=== PATIENT | male | born 1970 | race Caucasian/White ===

== ENCOUNTER 2021-03-31 13:51 | Outpatient (CLI) | payer MEDICAID, SELFPAY ==
--- NOTE | 2021-03-31 13:30 | DI.RAD_ITS ---
Exam(s) XR SHOULDER RT COMPLETE 2+V EXAM: XR SHOULDER RT COMPLETE 2+V CLINICAL HISTORY: shoulder pain, frozen shoulder, adhesive capsulitis, M75.00 TECHNIQUE: COMPARISON: No exams were available for comparison FINDINGS: Six views were obtained. Cartilaginous joint space of the glenohumeral joint appears fairly well chris ntained. The AC joint is unremarkable in appearance. No focal bony abnormality seen. There is tiny tae of calcification projected over the greater tuberosity of the humerus probably associated with supraspinatus tendon insertion and this may represent a calcific peritendinitis. No other significa nt soft tissue abnormality seen. IMPRESSION: RADIATION DOSE DELIVERED: Total DLP
== END 2021-03-31 14:11 ==
PROVIDERS: Visit Provider Nurse Practitioner
DX: M25.511 Pain in right shoulder (principal); M75.01 Adhesive capsulitis of right shoulder
CPT/HCPCS: 73030

== ENCOUNTER 2021-06-10 03:19 | Outpatient (CLI) | payer MEDICAID, SELFPAY ==
[2021-06-10 12:54] LABS: Hemoglobin A1C 5.5 % (<5.7)
[2021-06-10 13:04] LABS: ALT 28 U/L (16-63); AST 24 U/L (15-37); Albumin 3.7 g/dL (3.4-5.0); Alkaline Phosphatase 83 U/L (46-116); Anion Gap 5.9 mmol/L (3-11); BUN 16 mg/dL (7-18); Bilirubin, Total 0.3 mg/dL (0.2-1.0); CO2 32.1 mmol/L (21.0-32.0); Calcium 8.8 mg/dL (8.5-10.1); Calculated LDL 93 mg/dL (<100); Chloride 106 mmol/L (98-107); Cholesterol 157 mg/dL (<200); Glucose 83 mg/dL (74-106); HDL Cholesterol 52 mg/dL (40-60); Potassium 4.7 mmol/L (3.5-5.1); Sodium 144 mmol/L (136-145); TSH 1.51 uIU/mL (0.36-3.74); Total Protein 7.2 g/dL (6.4-8.2); Triglyceride 63 mg/dL (<150)
[2021-06-10 22:12] LABS: PSA, Screening 0.7 ng/mL (0.0-2.5)
== END 2021-06-10 03:20 | disposition home or self-care (01) ==
LOC: LOS 03:20
PROVIDERS: PCP Nurse Practitioner Family; Visit Provider Nurse Practitioner Family
DX: I10 Essential (primary) hypertension (principal); Z13.220 Encounter for screening for lipoid disorders; Z13.29 Encounter for screening for other suspected endocrine disorder; Z12.5 Encounter for screening for malignant neoplasm of prostate; Z00.00 Encounter for general adult medical examination without abnormal findings; Z13.1 Encounter for screening for diabetes mellitus
CPT/HCPCS: 36415; 80053; 80061; 84153; 83036; 84443

== ENCOUNTER 2022-09-16 03:30 | Outpatient (CLI) | payer OTHER, SELFPAY ==
[2022-09-16 12:56] LABS: Estimated GFR 91.12 (mL/min/1.73m2)
== END 2022-09-16 03:31 | disposition home or self-care (01) ==
LOC: LOS 03:30
PROVIDERS: PCP Nurse Practitioner Family; Visit Provider Nurse Practitioner Family
DX: I10 Essential (primary) hypertension (principal)
CPT/HCPCS: 36415; 82565; 84132

== ENCOUNTER 2022-12-01 17:30 | Day surgery (SDC) | payer OTHER, SELFPAY ==
[2022-12-01] VITALS (43 sets, daily range): BP systolic 132–175; BP diastolic 78–101; PULSE 67–86; RESP 11–24; TEMP 36.3–37.2; TEMPC 37.2; O2SAT 95–100; BMI 28.0
--- NOTE | 2022-12-01 17:45 | RT.EKG_ITS ---
APPROVED REPORT Exam: Resting ECG Reason for Exam: Midepigastric pain Patient Location: E HR:68 bpm ECG Measurements Heart Rate 68 AXIS SD 181 P 65 QRSd 100 QRS 7 QT 402 T 34 QTc 428 Conclusion Sinus rhythm...normal P axis, V-rate 60- 99 Probable left atrial enlargement...P >50mS, <-0.10mV V1
--- NOTE | 2022-12-01 17:53 | ED.GENADUL_ITS ---
Discharge Plan Discharge Details Chief Complaint: ThroatFB Attending Provider: Vicente Dunlap Primary Care Provider: Juancarlos Kwan ED Provider: Flora Varma Medical Decision Making 52-year-old male presents to the ER accompanied by his with a chief complaint of foreign body sensation since last night. He reports that he has had intermittent hiccups throughout the day. This began after eating some chicken last night. He has been unable to eat or drink anything since then. He has a clear voice, denies any radiation of the chest pain or shortness of breath or cough. Denies any diarrhea or any other associated symptoms. Does complain of some midsternal tightness. He does report a history of this years ago and he did have a barium swallow at that time. Past medical history includes hyperlipidemia hypertension, GERD, seborrheic dermatitis and removal of malignant melanoma of skin In 1996. EKG was reviewed by Dr. Blayne Hoffman ER attending, Work-up ordered including CBC CMP, troponin, EKG, effervescent granules p.o. ordered to attempt at removal of foreign body. Will consider imaging if unsuccessful. Effervescent's x2 p.o. attempt unsuccessful per RN report. I did reevaluate patient he states that he still feels foreign body sensation in his upper esophagus and lower esophagus. He is speaking in full sentences, O2 sat is 98% on room air. Labs are pending at this time. 2 mg of diazepam ordered IV. CBC shows no leukocytosis, CMP largely within normal limits, initial troponin less than 50, 185: Surgery paged for consultation. 1941: Surgery re-paged. 1950: Spoke with Dr. Dunlap who is occupational health and safety adviser for general surgery regarding patient case and details. We are unable to do a barium swallow x-ray at this time due to no radiologist in house. He will come in and evaluate the patient for possible urgent endoscopy. COVID swab added on. 2034: Dr. Dunlap here at bedside for patient evaluation. Patient is COVID- positive chest x-ray ordered. Anesthesia here at bedside for evaluation. Plan is to have patient go to the OR for upper endoscopy for foreign body removal. Patient remained alert and oriented hemodynamically stable throughout the remainder of the stay. This text was generated using [employer] system, please disregard any oddities of phrase or misspellings. 2148: Patient parents reported to OR by senior staff accountant. Medical Records Medical records reviewed: Yes I reviewed the patient's medical records. Imaging Data Radiologic Study: Imaging: X-Ray Radiologist's impression: Chest x-ray v[facility] report: Imaging protocol: Radiologic exam of the chest. Views: 1 view. COMPARISON: CR XR SHOULDER RT COMPLETE 2+V 03/31/2021 2:03 PM FINDINGS: Lungs: Unremarkable. No consolidation. Pleural spaces: Unremarkable. No pleural effusion. No pneumothorax. Heart/Mediastinum: Mild aortic tortuosity. No cardiomegaly. Bones/joints: Unremarkable. IMPRESSION: No acute findings. Thank you for allowing us to participate in the care of your patient. Dictated and Authenticated by: Darrell Fowler MD Lab Data Lab results reviewed: Yes I reviewed the patient's lab results. Labs: Laboratory Tests Range/Units 12/01/22 12/01/22 18:45 18:45 WBC (4.4-10.8) 10^3/uL 6.77 RBC (4.36-5.78) 10^6/uL 5.53 Hgb (13.5-17.5) g/dL 16.2 Hct (40.0-50.0) % 49.9 MCV (80-95) fL 90 MCH (27.0-33.0) pg 29.3 MCHC (32.0-36.0) % 32.5 RDW (11.8-14.1) % 13.1 Plt Count (130-400) 10^3/uL 284 MPV (8.0-11.0) fL 9.6 Immature Gran % 0.1 Neutrophils % 68.9 Lymphocytes % 21.0 Monocytes % 7.5 Eosinophils % 2.2 Basophils % 0.3 Nucleated RBC % (0.0-0.3) % 0.0 Absolute Neutrophils (1.2-6.7) 10^3/uL 4.66 Absolute Lymphocytes (1.2-3.4) 10^3/uL 1.42 Absolute Monocytes (0.1-0.8) 10^3/uL 0.51 Absolute Eosinophils (0.0-0.7) 10^3/uL 0.15 Absolute Basophils (0.0-0.2) 10^3/uL 0.02 Sodium (136-145) mmol/L 142 Potassium (3.5-5.1) mmol/L 4.4 Chloride (98-107) mmol/L 105 Carbon Dioxide (21.0-32.0) mmol/L 30.9 Anion Gap (3-11) mmol/L 6.1 BUN (7-18) mg/dL 18 Creatinine (0.70-1.30) mg/dL 1.0 Est GFR (CKD-EPI 2020) (mL/min/1.73m2) 91.12 Glucose (74-106) mg/dL 81 Calcium (8.5-10.1) mg/dL 9.3 Magnesium (1.8-2.4) mg/dL 2.2 Total Bilirubin (0.2-1.0) mg/dL 0.7 AST (15-37) U/L 38 H ALT (16-63) U/L 37 Alkaline Phosphatase (46-116) U/L 68 Troponin I (<or=60) ng/L < 50 Total Protein (6.4-8.2) g/dL 8.2 Albumin (3.4-5.0) g/dL 4.2 HPI General Mode of arrival: ambulatory . Date/Time Provider Initiated Documentation: 12/01/22 17:36 . Limitations to Documentation: no limitations . Information obtained by: patient, family and old records reviewed . HPI Narra tive: 52-year-old male presents to the ER accompanied by his with a chief complaint of foreign body sensation since last night. He reports that he has had intermittent hiccups throughout the day. This began after eating some chicken last night. He has been unable to eat or drink anything since then. He has a clear voice, denies any radiation of the chest pain or shortness of breath or cough. Denies any diarrhea or any other associated symptoms. Does complain of some midsternal tightness. He does report a history of this years ago and he did have a barium swallow at that time. Past medical history includes hyperlipidemia hypertension, GERD, seborrheic dermatitis and removal of malignant melanoma of skin In 1996. Related Data Home Medications Medication Instructions Recorded Confirmed lisinopril 20 mg tablet 20 mg PO DAILY #90 tabs 06/24/22 12/01/22 omeprazole 20 mg capsule,delayed 20 mg PO DAILY #30 caps 12/01/22 12/01/22 release Previous Rx's Medication Instructions Recorded lisinopril 20 mg tablet 20 mg PO DAILY #90 tabs 06/24/22 omeprazole 20 mg capsule,delayed 20 mg PO DAILY #30 caps 12/01/22 release Allergies Allergy/AdvReac Type Severity Reaction Status Date / Time venom-honey bee Allergy Intermediate sore area Verified 12/01/22 17:52 General Stated Complaint: ThroatFB LEIA: 2 Review of Systems All systems reviewed & are unremarkable except as noted in HPI and below ENT Ears, Nose, Mouth, and Throat: Reports dysphagia Cardiovascular Cardiovascular: Reports chest pain at rest (Describes as esophageal tightening), Denies syncope and Denies dyspnea Respiratory Respiratory: Denies dyspnea Gastrointestinal Gastrointestinal: Denies abdominal pain, Reports dysphagia and Reports other (Hiccups) Neurologic Neurologic: Denies syncope PFS All Active Problems (Updated 12/01/22 @ 20:57 by Vicente Dunlap MD) COVID-19 (Acute) Food bolus obstruction of intestine (Acute) GERD (gastroesophageal reflux disease) (Chronic) Seborrheic dermatitis (Acute 12/14/16) Hyperlipidemia (Acute) Hypertension (Chronic) Medical History Concussion Hemorrhoids Malignant melanoma of skin Surgical History Colonoscopy - MAC (07/29/17) Skin Cancer Removal (~1996) Family History Mother Essential hypertension Personal history of malignant neoplasm SKIN Father Diabetes Personal history of malignant neoplasm PROSTATE Sister No problems noted. Brother No problems noted. Grandfather Heart disease Myocardial infarction Grandfather Personal history of malignant neoplasm Grandmother Stroke Grandmother Heart disease BY PASS Son No problems noted. Son No problems noted. Social History Smoking/Tobacco Use Status: Never Smoking risk assessment performed?: Yes Alcohol Intake: former Drug use: Never Substance use type: does not use Caregiver/Support person: No Household members: spouse Housing: house Communication Needs: None Do you need help understanding health information?: Never Pets and animals: Yes Pets and animals: cat(s) Sexually active: Yes Do you think of yourself as: straight/heterosexual Current gender identity: male What is your relationship status?: How often do you talk on the phone with friends or family?: three or more times per week How often do you get together with friends or relatives?: twice per week How often do you attend holiness or caodaism services?: 4 or more times per year Do you belong to any clubs or organized social groups?: yes Panel score (0-1 are the most socially isolated patients): 4 What type of physical activity do you participate in: regular exercise and other Details: Hiking Duration: > 90 minutes/day Frequency: daily Libra/Jain: Presybeterian Special libra needs: No Seatbelt use: always Drive intox or ride 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 Appears stated age. Normal body habitus. Head: Normocephalic, no trauma. Eyes: Pupils PERRL, Red reflex noted, EOM's intact. Eyelids symmetrical without lesions, discharge, or swelling. ENT: External ear normal to inspection, no mastoid TTP, swelling, or erythema, Nasal turbinates WNL, no nasal discharge. Normal dentition, Posterior pharynx WNL, no exudate. Chest: RRR, Normal S1, S2, distal pulses intact. Complaining of midsternal and upper esophageal tightening associated with hiccups difficulty swallowing and handling secretions. Resp: Lungs clear to auscultation bilaterally, no wheezes, rales, or rhonchi. Abdomen: Soft, non-distended, Normoactive bowel sounds all 4 quads. Musculoskeletal: Normal gait, 5/5 strength to all four extremities. Skin: No suspicious rashes or lesions. Capillary refill less than 2 sec. Neurologic: Cranial nerves II-XII intact. Alert and oriented x 3. Motor: No deficits noted. Sensory: Intact bilaterally all 4 extremities. Hematologic/Lymphatic: No ecchymosis, no lymphadenopathy. Course Vital Signs Vital signs: Vital Signs Temperature 37.0 C 12/01/22 17:43 Pulse 71 12/01/22 17:43 Respiratory Rate 18 12/01/22 17:43 Blood Pressure 175/98 H 12/01/22 17:43 Pulse Oximetry 98 12/01/22 17:43 Temperature 37.0 C 12/01/22 17:43 Temperature Source Skin 12/01/22 17:43 Pulse 71 12/01/22 17:43 Respiratory Rate 18 12/01/22 17:43 Blood Pressure 175/98 H 12/01/22 17:43 Blood Pressure Position Sitting 12/01/22 17:43 Pulse Oximetry 98 12/01/22 17:43 Oxygen Delivery Method Room Air 12/01/22 17:43 Oxygen Flow Rate 0 12/01/22 17:43 Pain Level 0 12/01/22 17:43
[2022-12-01] MEDS: Potassium Bicarbonate/Cit AC 25 MEQ TABLET.EFF PO ×2 (18:14→18:53)
[2022-12-01 18:55] LABS: Abs Immature Grans 0.01 10^3/uL (0.0-0.06); Absolute Basophil Count 0.02 10^3/uL (0.0-0.2); Absolute Eosinophil Count 0.15 10^3/uL (0.0-0.7); Absolute Lymphocyte Count 1.42 10^3/uL (1.2-3.4); Absolute Monocyte Count 0.51 10^3/uL (0.1-0.8); Absolute Neutrophil Count 4.66 10^3/uL (1.2-6.7); Basophils % 0.3; Eosinophils % 2.2; HCT 49.9 % (40.0-50.0); HGB 16.2 g/dL (13.5-17.5); Immature Grans % 0.1; MCH 29.3 pg (27.0-33.0); MCHC 32.5 % (32.0-36.0); MCV 90 fL (80-95); MPV 9.6 fL (8.0-11.0); Monocytes % 7.5; Neutrophils % 68.9; Platelet Count 284 10^3/uL (130-400); RBC 5.53 10^6/uL (4.36-5.78); RDW 13.1 % (11.8-14.1); RDW-SD 43.4 fL; WBC 6.77 10^3/uL (4.4-10.8)
[2022-12-01] MEDS: Normal Saline 250 ML IV (19:00)
[2022-12-01] MEDS: diazePAM 10 MG/2 ML SYR 2 MG IVP (19:01)
[2022-12-01 19:14] LABS: ALT 37 U/L (16-63); AST 38 U/L (15-37); Albumin 4.2 g/dL (3.4-5.0); Alkaline Phosphatase 68 U/L (46-116); Anion Gap 6.1 mmol/L (3-11); BUN 18 mg/dL (7-18); Bilirubin, Total 0.7 mg/dL (0.2-1.0); CO2 30.9 mmol/L (21.0-32.0); Calcium 9.3 mg/dL (8.5-10.1); Chloride 105 mmol/L (98-107); Estimated GFR 91.12 (mL/min/1.73m2); Glucose 81 mg/dL (74-106); Magnesium 2.2 mg/dL (1.8-2.4); Potassium 4.4 mmol/L (3.5-5.1); Sodium 142 mmol/L (136-145); Total Protein 8.2 g/dL (6.4-8.2); Troponin I < 50 ng/L (<or=60)
[2022-12-01 20:02] LABS: Source Nasal/Nares
--- NOTE | 2022-12-01 20:15 | DI.RAD_ITS ---
Exam(s) XR PORTABLE CHEST AP EXAM: XR PORTABLE CHEST AP CLINICAL HISTORY: Chest pain Pre-op, Foreign body sensation TECHNIQUE: 2D digital imaging was performed. COMPARISON: No exams were available for comparison FINDINGS: LUNGS: Clear. No pleural abnormality seen. HEART: Normal size. AORTA: Normal diameter. BONES: Unremarkable for age. Soft tissues: Unremarkable. IMPRESSION: No acute findings. DATA REPOSITORY: RADIATION DOSE DELIVERED:
[2022-12-01 20:39] LABS: COVID-19 PCR POSITIVE (Negative)
--- NOTE | 2022-12-01 20:45 | W.PM.HP.N ---
Date of service: 12/01/22 Time of Service: 20:45 Assessment and Plan Assessment and plan (1) Food bolus obstruction of intestine: Status: Acute Assessment and plan: EGD tonight. We discussed the risks and benefits of the procedure and he provided informed consent. (2) COVID-19: Status: Acute Assessment and plan: Asymptomatic incidental finding Basic supportive therapy without specific intervention History of Present Illness History of Present Illness Chief Complaint: dysphagia with foreign body sensation Narrative: Josh is a 52 year old male who was eating dinner last night and got the sensation of food getting caught in the middle of his chest. He described it as uncomfortable and a fullness. He tried to drink some water and eat ice cream but this induced hiccups and vomiting without any relief of the food bolus sensation. Hiccups persisted through the night but he was able to sleep. He felt a bit more discomfort this morning and he has not been able to tolerate anything by mouth prior to coming to the ED this afternoon. He says that he had one previous episode of this many years ago. He thinks he had a barium swallow and to his knowledge,nothing was identified. Review of Systems Constitutional Constitutional: Denies body ache(s), Denies fatigue, Denies fever(s) and Denies weakness Eyes Eyes: Reports system reviewed and no additional complaints, except as documented ENT Ears, Nose, Mouth, and Throat: Reports system reviewed and no additional complaints, except as documented, Reports dysphagia and Reports odynophagia Cardiovascular Cardiovascular: Denies chest pain and Denies dyspnea Respiratory Respiratory: Denies chest congestion, Denies cough and Denies dyspnea Gastrointestinal Gastrointestinal: Denies abdominal pain, Denies bloating, Denies change in stool character, Denies coffee ground emesis, Reports dysphagia, Reports odynophagia and Reports vomiting Genitourinary Genitourinary: Reports system reviewed and no additional complaints, except as documented Musculoskeletal Musculoskeletal: Denies back pain and Denies myalgias Neurologic Neurologic: Reports system reviewed and no additional complaints, except as documented and Denies weakness Psychiatric Psychiatric: Reports system reviewed and no additional complaints, except as documented Endocrine Endocrine: Denies fatigue Hematologic/Lymphatic Hematologic/Lymphatic: Denies easy bleeding and Denies easy bruising PFSH All Active Problems (Updated 12/01/22 @ 20:57 by Vicente Dunlap MD) COVID-19 (Acute) Food bolus obstruction of intestine (Acute) GERD (gastroesophageal reflux disease) (Chronic) Seborrheic dermatitis (Acute 12/14/16) Hyperlipidemia (Acute) Hypertension (Chronic) Medical History Concussion Hemorrhoids Malignant melanoma of skin Surgical History Colonoscopy - MAC (07/29/17) Skin Cancer Removal (~1996) Family History Mother Essential hypertension Personal history of malignant neoplasm SKIN Father Diabetes Personal history of malignant neoplasm PROSTATE Sister No problems noted. Brother No problems noted. Grandfather Heart disease Myocardial infarction Grandfather Personal history of malignant neoplasm Grandmother Stroke Grandmother Heart disease BY PASS Son No problems noted. Son No problems noted. Social History Smoking/Tobacco Use Status: Never Smoking risk assessment performed?: Yes Alcohol Intake: former Drug use: Never Substance use type: does not use Caregiver/Support person: No Household members: spouse Housing: house Communication Needs: None Do you need help understanding health information?: Never Pets and animals: Yes Pets and animals: cat(s) Sexually active: Yes Do you think of yourself as: straight/heterosexual Current gender identity: male What is your relationship status?: How often do you talk on the phone with friends or family?: three or more times per week How often do you get together with friends or relatives?: twice per week How often do you attend hinduism or zoroastrianism services?: 4 or more times per year Do you belong to any clubs or organized social groups?: yes Panel score (0-1 are the most socially isolated patients): 4 What type of physical activity do you participate in: regular exercise and other Details: Hiking Duration: > 90 minutes/day Frequency: daily Libra/Sabianist: Protestant Special libra needs: No Seatbelt use: always Drive intox or ride w/intox mechanic driver: No Meds Allergies and Home Medications Allergies Allergy/AdvReac Type Severity Reaction Status Date / Time venom-honey bee Allergy Intermediate sore area Verified 12/01/22 17:52 Home Medications Medication Instructions Recorded Confirmed Type lisinopril 20 mg tablet 20 mg PO DAILY #90 tabs 06/24/22 12/01/22 Rx omeprazole 20 mg capsule,delayed 20 mg PO DAILY #30 caps 12/01/22 12/01/22 Rx release Exam Const General: cooperative, healthy appearing and comfortable Orientation: awake and oriented x3 HENMT Head: normal to inspection Mouth: oral mucosae normal Teeth and gingiva: dentition normal Eyes General: appearance normal, both eyes and all related structures Conjunctivae: conjunctivae normal Sclera: sclerae normal Neck Neck: normal visual inspection, full ROM and no lymphadenopathy Thyroid: thyroid normal Lymphatic: no lymphadenopathy noted Chest Chest: normal inspection of the chest and no crepitus Resp Effort & Inspection: normal respiratory effort and able to speak in complete sentences Auscultation: clear to auscultation bilaterally Cardio Jugular venous pressure: no JVD Rate: regular rate Rhythm: regular rhythm Heart Sounds: S1 normal and S2 normal GI Inspection: non-distended Palpation: soft, no guarding, no hernias and nontender Auscultation: normal bowel sounds Skin General skin exam: normal turgor Neuro General: patient alert, patient awake and patient oriented x3 Cognition: normal cognition Extrem Right lower extremity: no edema Left lower extremity: no edema Results Labs Result diagrams: 12/01/22 18:45 12/01/22 18:45 Labs: Laboratory Results - last 24 hr 12/01/22 12/01/22 12/01/22 18:45 18:45 19:56 WBC 6.77 RBC 5.53 Hgb 16.2 Hct 49.9 MCV 90 MCH 29.3 MCHC 32.5 RDW 13.1 Plt Count 284 MPV 9.6 Immature Gran % 0.1 Neutrophils % 68.9 Lymphocytes % 21.0 Monocytes % 7.5 Eosinophils % 2.2 Basophils % 0.3 Nucleated RBC % 0.0 Absolute Neutrophils 4.66 Absolute Lymphocytes 1.42 Absolute Monocytes 0.51 Absolute Eosinophils 0.15 Absolute Basophils 0.02 Sodium 142 Potassium 4.4 Chloride 105 Carbon Dioxide 30.9 Anion Gap 6.1 BUN 18 Creatinine 1.0 Est GFR (CKD-EPI 2020) 91.12 Glucose 81 Calcium 9.3 Magnesium 2.2 Total Bilirubin 0.7 AST 38 H ALT 37 Alkaline Phosphatase 68 Troponin I < 50 Total Protein 8.2 Albumin 4.2 COVID-19 Source Nasal/Nares SARS-CoV-2 (PCR) POSITIVE A* Last Vital Signs Temp 98.6 F 12/01/22 17:43 Pulse 71 12/01/22 17:43 Resp 18 12/01/22 17:43 BP 175/98 H 12/01/22 17:43 Pulse Ox 98 12/01/22 17:43 Time Spent Time spent with Patient: 40-54 minutes Time was spent: preparing to see the patient(eg.review tests), obtaining and/or reviewing separately otained hiistory, ordering medications,tests, procedures, referring, communicating with other health medicare sales representative, indepentently interpreting results and counseling the patient
--- NOTE | 2022-12-01 20:52 | DI.VRAD_ITS ---
PROCEDURE INFORMATION: Exam: XR Chest Exam date and time: 12/01/2022 8:16 PM Age: 52 years old Clinical indication: Screening exam; Pre-operative exam; Other: Endoscopy; Patient HX: Chest pain pre-op, foreign body sensation TECHNIQUE: Imaging protocol: Radiologic exam of the chest. Views: 1 view. COMPARISON: CR XR SHOULDER RT COMPLETE 2+V 03/31/2021 2:03 PM FINDINGS: Lungs: Unremarkable. No consolidation. Pleural spaces: Unremarkable. No pleural effusion. No pneumothorax. Heart/Mediastinum: Mild aortic tortuosity. No cardiomegaly. Bones/joints: Unremarkable. IMPRESSION: No acute findings. Dictated and Authenticated by: Darrell Fowler MD. Ordering:JEAN Hines MD
--- NOTE | 2022-12-01 21:21 | ANES.PREOP_ITS ---
General Info Date of Service Date Performed: 12/01/22 Height: 5 ft 9 in Weight: 86.183 kg Body Mass Index (BMI): 28.0 Surgical Procedure: Operation Date: 12/01/22 21:40 Proposed Procedure Side Surgeon p Gastroscopy/Removal Foreign Body Vicente Dunlap MD Meds Allergies and Home Medications Allergies Allergy/AdvReac Type Severity Reaction Status Date / Time venom-honey bee Allergy Intermediate sore area Verified 12/01/22 17:52 Home Medication Medication Instructions Recorded lisinopril 20 mg tablet 20 mg PO DAILY #90 tabs 06/24/22 omeprazole 20 mg capsule,delayed 20 mg PO DAILY #30 caps 12/01/22 release Current Visit Medications: Current Medications Generic Name Dose Route Start Last Admin Trade Name Freq PRN Reason Stop Dose Admin IV Miscellaneous Supplies 1 each 12/01/22 18:00 Iv Access IV DIRECTED KAJAL Sodium Chloride 0 ml 12/01/22 17:50 Normal Saline Flush 10 Ml Syr IVP PRN PRN PFSH Active Problems Active Problems: Problem Status Onset Code COVID-19 U07.1 Food bolus obstruction of intestine K56.699 GERD (gastroesophageal reflux disease) K21.9 Seborrheic dermatitis 12/14/16 L21.9 Hyperlipidemia E78.5 Hypertension I10 Medical History Medical History Concussion Hemorrhoids Malignant melanoma of skin Surgical History Surgical History Colonoscopy - MAC (07/29/17) Skin Cancer Removal (~1996) Tobacco Smoking/Tobacco Use Status: Never Passive smoking exposure: Yes Alcohol Alcohol Intake: former Substance Use Substance use: Never Substance use type: does not use Vital Signs and Lab Results Vital Signs Most Recent Vital Signs in EMR: Most Recent Vital Signs Temp Pulse Resp BP Pulse Ox 37.0 C 75 14 146/88 H 96 12/01/22 17:43 12/01/22 20:46 12/01/22 20:50 12/01/22 20:46 12/01/22 20:50 Lab Results Result Diagrams: 12/01/22 18:45 12/01/22 18:45 Blood Type / Crossmatch: No Data to Display Complete Blood Count: White Blood Count 6.77 10^3/uL (4.4-10.8) 12/01/22 18:45 Red Blood Count 5.53 10^6/uL (4.36-5.78) 12/01/22 18:45 Hemoglobin 16.2 g/dL (13.5-17.5) 12/01/22 18:45 Hematocrit 49.9 % (40.0-50.0) 12/01/22 18:45 Platelet Count 284 10^3/uL (130-400) 12/01/22 18:45 Complete Metabolic Panel: Sodium 142 mmol/L (136-145) 12/01/22 18:45 Potassium 4.4 mmol/L (3.5-5.1) 12/01/22 18:45 Chloride 105 mmol/L (98-107) 12/01/22 18:45 Carbon Dioxide 30.9 mmol/L (21.0-32.0) 12/01/22 18:45 BUN 18 mg/dL (7-18) 12/01/22 18:45 Creatinine 1.0 mg/dL (0.70-1.30) 12/01/22 18:45 Est GFR (CKD-EPI 2020) 91.12 (mL/min/1.73m2) 12/01/22 18:45 Magnesium 2.2 mg/dL (1.8-2.4) 12/01/22 18:45 Calcium 9.3 mg/dL (8.5-10.1) 12/01/22 18:45 Albumin 4.2 g/dL (3.4-5.0) 12/01/22 18:45 Glucose 81 mg/dL (74-106) 12/01/22 18:45 Liver Function Panel: Alanine Aminotransferase (ALT/SGPT) 37 U/L (16-63) 12/01/22 18: 45 Aspartate Amino Transf (AST/SGOT) 38 U/L (15-37) H 12/01/22 18: 45 Coagulation Panel: No Data to Display Cardiac Panel: Troponin I < 50 ng/L (<or=60) 12/01/22 Arterial Blood Gas: No Data to Display Venous Blood Gas: No Data to Display Pancreas Panel: No Data to Display Thyroid Panel: No Data to Display Infectious Disease: Coronavirus (COVID-19)(PCR) POSITIVE (Negative) A* 12/01/22 19 :56 Coronavirus 2019 Source Nasal/Nares 12/01/22 19:56 Blood Cultures: No Data to Display Toxicology Panel: No Data to Display Imaging and Studies Imaging and Studies Study information below may be from another EMR and interpreted by another provider. Please see original notes in EMR for more complete details. EKG Summary: EKG PATIENT NAME: Hilda Barakat #: [id number] ORDERING PROVIDER: Flora Varma NPACCOUNT #: [id number] PRIMARY CARE PROVIDER:KEVIN GREEN NP DATE/TIME OF SERVICE: 12/01/22 1759 : 1970PERFORMING LOCATION: ER APPROVED REPORT Exam: Resting ECG Reason for Exam: Midepigastric pain Patient Location: E HR:68 bpm ECG Measurements Heart Rate 68 AXIS GA 181 P 65 QRSd 100 QRS 7 QT 402 T34 QTc 428 Conclusion Sinus rhythm...normal P axis, V-rate 60- 99 Probable left atrial enlargement...P >50mS, <-0.10mV V1 <Electronically signed by MARCE MERCADO MD in OV> E-Sign Date: 12/01/22 E-Sign Time: 1809 Anesthesia Assessment and Plan Anesthesia History Personal History: No History of Anesthesia Complications Family History: No Family History of Anesthesia Complications Exercise Tolerance Exercise Tolerance: Metabolic Equivalents>4 Pertinent Negatives Pertinent Negatives: No Symptoms of GERD Cardiac & Pulmonary Exam Cardiac Exam: Normal S1/S2 Heart Sounds Pulmonary Exam: Clear Bilateral Breath Sounds Implantable Cardiac Device Does patient have a Pacemaker or an ICD?: No Airway Exam Known Difficult Airway: No Mallampati Class: 2 Mouth Opening: Normal (> 3cm) Thyromental Distance: Greater than 3 cm Neck Range of Motion: Full ROM Neck Circumference: Normal Teeth Condition: Normal Dentition ASA Classification ASA Score: ASA 2 Emergency Case?: Yes NPO Status NPO Status: Full Stomach Anesthesia Plan Resuscitation Status: Full Code Anesthesia Technique: General Anesthesia Airway Planned: Endotracheal Tube Monitors Used: Standard Monitors
--- NOTE | 2022-12-01 22:19 | W.PM.ENDDOP ---
Date of service: 12/01/22 Time of Service: 22:19 Endoscopy Report DATE OF PROCEDURE: 12/01/22 PRE-OP DIAGNOSIS: Retained food bolus in esophagus POST-OP DIAGNOSIS: same PROCEDURE: EGD with retrieval of retained food bolus SURGEON: Vicente Dunlap ANESTHESIA TYPE: General LMA/ETT ESTIMATED BLOOD LOSS: 5 PATHOLOGY: none sent COMPLICATIONS: None DISPOSITION: PACU INDICATIONS: Benja is a 52-year-old male who has a sensation of a retained food bolus in the midportion of his esophagus. This started last night while eating chicken. It persisted through the day, and he is now having difficulty taking anything by mouth PROCEDURE START TIME: 22:03 PROCEDURE END TIME: 22:21 FINDINGS: Retained food bolus at the lower esophageal sphincter consistent with chicken PROCEDURE DESCRIPTION: After the induction of general anesthesia and establishment of endotracheal intubation, we used a bite block to assist with safe delivery and passage of the endoscope. Next, with direct visualization, I advanced an endoscope down the mouth through the hypopharynx and into the proximal esophagus. All of this look normal. As I move down the esophagus, I encountered a large food bolus of what appeared to be chicken in the area of the lower esophageal sphincter. It is occluded a majority of the lumen of the esophagus. I tried to advance the food bolus with gentle pressure, but there was resistance. Therefore, using a Kendrick endoscopic grasping device, I attempted to retrieve the foreign body. I was able to get around it, and gently withdraw it, however around 20 cm from the incisors, a portion broke off. I retrieved the bit that was in the forceps, and delivered the endoscope back into the esophagus. I was able to grasp the food bolus again, but on retrieval, another portion broke off. As I advanced the scope back down the esophagus, the food bolus was seen advancing towards the lower esophageal sphincter. As I approached it and tried to secure it with the Kendrick forceps, it did advanced through the GE junction into the stomach. Therefore, I gently advance the endoscope into the stomach and performed a brief examination. The antrum and body looked normal. The pylorus was healthy appearing. On retroflexion, there was mild inflammation around the GE junction, otherwise it appeared normal. I then desufflated some of the stomach, and withdrew the scope above the lower esophageal sphincter examining the distal esophagus. Again, there was inflammation in the lower esophagus at the GE junction. The Z-line was difficult to decipher, but the GE junction appeared to be at 39 cm. There was no gross pathology here. There was no clear stricture or web. I did not see any evidence of paraesophageal hernias, or epiphrenic diverticula. I gently irrigated a small portion of retained food products down the distal esophagus into the stomach proper. I then withdrew the endoscope along the length of the esophagus. Aside from the mild inflammation at the distal portion, everything else appeared normal. Having relieve the foreign body obstruction, I felt the safest thing to do at this point was to terminate the procedure. I do think he would benefit from a repeat EGD in approximately 3 to 6 months in order to assess for any underlying pathology.
[2022-12-01] MEDS: Lactated Ringers 1,000 ML 75 ML IV (22:25)
--- NOTE | 2022-12-01 22:27 | PDOC.DSDIS_ITS ---
Date of service: 12/01/22 Time of Service: 22:28 Discharge Plan Disposition Patient Disposition: Home Condition: Good Discharge Details Attending Provider: Vicente Dunlap Primary Care Provider: Juancarlos Kwan Home Meds and New Rx's Prescriptions: Continued lisinopril 20 mg tablet 20 mg PO DAILY Qty: 90 4RF omeprazole 20 mg capsule,delayed release(DR/EC) 20 mg PO DAILY Qty: 30 2RF Discharge Instructions Instructions: Diet for Stomach Ulcers and Gastritis (GEN) Additional Instructions: 1. If tolerated, consume a soft, low fiber diet for 1-2 days. Chew your food very carefully. 2. Do not drive, drink alcohol, operate machinery, make critical decisions, or do activities that require coordination or balance for 24 hours. 3. You may experience a sore throat for 24 to 48 hours. You may use throat lozenges or gargle with warm salt water to relieve the discomfort. 4. Because air was put into your stomach during the procedure, you may experience some belching. 5. Go directly to the emergency room if you notice any of the following: Develop chills (warm to touch), or if you have a thermometer and your temperature is above 101 Difficulty breathing or difficultly swallowing Persistent vomiting Severe abdominal pain, other than gas cramps Severe chest pain Black, tarry stools Any bleeding ? exceeding one tablespoon 6. Call your physician if the site where your intravenous was started becomes red, swollen, painful, and warm to touch. 7. Your physician has reviewed your pre-procedure medications. Please continue to take those medications as previously ordered. You will be given specific information/education regarding any changes to your medications before leaving. Referrals: Vicente Dunlap MD [ [facility] STAFF PHYSICIAN] - (Please follow-up in my office in 3 months to schedule elective upper endoscopy to rule out underlying esophageal problems) Activity:: Activity as Tolerated Diet:: [place] diet Discharge Orders Discharge Orders: Discharge Order (Routine); Ordered 12/01/22 Ordered By: Vicente Dunlap DS: Diagnosis Discharge Diagnosis (1) Food bolus obstruction of intestine: Status: Acute Asessment and Plan: Status post endoscopic retrieval of food bolus (2) COVID-19: Status: Acute Asessment and Plan: Supportive therapy with no specific intervention
--- NOTE | 2022-12-01 23:00 | W.ANESPOSTOP ---
Postoperative Evaluation Date, Time and Location Date Performed: 12/01/22 Time Performed: 23:00 Patient Location: Intensive Care Unit Vital Signs Most Recent Imported Vital Signs: Most Recent Vital Signs Temp Pulse Resp BP Pulse Ox 36.3 C L 85 16 136/90 97 12/01/22 22:46 12/01/22 22:46 12/01/22 22:46 12/01/22 22:46 12/01/22 22:46 Most Recent Manually Entered Vital Signs: Adult Blood Pressure: 140/82 Heart Rate: 81 Respirations: 12 Oxygen Saturation (%): 97 Temperature (C): 37.2 C Pain Score (0-10 Scale): 0 Pain Score Most Recent Pain Score: Most Recent Pain Score Pain Level 0 12/01/22 22:46 Assessment Mental Status: Awake (Alert & Oriented to Patient Baseline) Airway and Respiratory Function: Patent airway with normal (patient baseline) respiratory exam Cardiovascular Function: Hemodynamically Stable Hydration Status: Adequately Hydrated Nausea & Vomiting: No Nausea or Vomiting Pain: Pt. Denies Any Pain Peripheral Nerve Block: Patient did not receive a nerve block Postoperative Comments:: Patient to ICU for phase 2. Concerns from ICU RNs that there are admission orders present. Anesthetically no reason for the patient to stay. I asked them to reach out to Dr. Dunlap
== END 2022-12-01 23:58 | disposition home or self-care (01) ==
LOC: ER 17:44 → DSU 21:49 → ICU 23:51 → ER 12-02 09:22 → ICU 12-02 10:56 → DSU 12-02 10:56 → ER 12-02 10:56
PROVIDERS: Emergency Provider Registered Nurse Emergency; PCP Nurse Practitioner Family; Visit Provider Surgery
PROC: 0DC68ZZ Extirpation of Matter from Stomach, Via Natural or Artificial Opening Endoscopic (ICD-10-PCS; CPT 43247; principal; 2022-12-01 21:40)
DX: T18.128A Food in esophagus causing other injury, initial encounter (principal); I10 Essential (primary) hypertension; K21.9 Gastro-esophageal reflux disease without esophagitis; E78.5 Hyperlipidemia, unspecified; U07.1 COVID-19
CPT/HCPCS: 43215; 80053; 87635; 93005; 96361; 96374; 99285; 71045; 83735; 84484; 85025; 93010; J2704; J3010; J3360

== ENCOUNTER 2024-07-10 12:50 | Outpatient (CLI) | payer OTHER, SELFPAY ==
[2024-07-10 12:29] LABS: CREATININE 0.9 mg/dL (0.70-1.30); Calculated LDL 115 mg/dL (<100); Cholesterol 187 mg/dL (<200); Estimated GFR 102.12 (mL/min/1.73m2); HDL Cholesterol 57 mg/dL (40-60); Potassium 4.3 mmol/L (3.5-5.1); Triglyceride 77 mg/dL (<150)
[2024-07-10 13:16] LABS: Hemoglobin A1C 5.5 % (<5.7)
== END 2024-07-10 12:51 | disposition home or self-care (01) ==
LOC: LBO 12:50
PROVIDERS: PCP Nurse Practitioner Family; Visit Provider Nurse Practitioner Family
DX: I10 Essential (primary) hypertension (principal); Z13.220 Encounter for screening for lipoid disorders; E78.5 Hyperlipidemia, unspecified; Z13.1 Encounter for screening for diabetes mellitus
CPT/HCPCS: 36415; 80061; 82565; 83036; 84132

== ENCOUNTER 2025-08-14 10:28 | Outpatient (CLI) | payer OTHER, SELFPAY ==
[2025-08-14 14:20] LABS: Hemoglobin A1C 5.4 % (<5.7)
[2025-08-14 16:41] LABS: Calculated LDL 94 mg/dL (<100); Cholesterol 161 mg/dL (<200); HDL Cholesterol 60 mg/dL (>or=40); Triglyceride 38 mg/dL (<150)
[2025-08-15 11:06] LABS: PSA, Screening 0.9 ng/mL (<=3.5)
== END 2025-08-14 10:29 | disposition home or self-care (01) ==
LOC: LOS 10:28
PROVIDERS: PCP Nurse Practitioner Family; Visit Provider Nurse Practitioner Family
DX: Z12.5 Encounter for screening for malignant neoplasm of prostate (principal); Z13.220 Encounter for screening for lipoid disorders; Z13.1 Encounter for screening for diabetes mellitus
CPT/HCPCS: 36415; 80061; 84153; 83036